=== PATIENT | male | born 1965 | race Two or more races ===

== ENCOUNTER 2018-12-01 13:28 | Emergency (ER) | payer MEDICAID ==
[~2018-12-01] VITALS: Ht 177.8 cm; Wt 69.4 kg
[2018-12-01 15:37] VITALS: BP 126/86
== END 2018-12-01 16:18 | disposition home or self-care (01) ==
LOC: ED 13:49
DX: R11.2 Nausea with vomiting, unspecified (principal); R19.7 Diarrhea, unspecified; R10.84 Generalized abdominal pain; F17.210 Nicotine dependence, cigarettes, uncomplicated
CPT/HCPCS: 36415; 74021; 80053; 83690; 85025; 99284; Q0162